=== PATIENT | male | born 1995 | race African-American/Black ===

== ENCOUNTER 2021-01-13 22:49 | Emergency (ER) | payer BC ==
[2021-01-13] MEDS ORDERED: ACETAMINOPHEN 500 MG TAB ONE (23:58)
[2021-01-14 00:14] LABS: Urine Blood 1+ (Negative); Urine Glucose Negative (Negative); Urine Protein Trace (Negative); Urine Specific Gravity >=1.030 (1.005-1.030); Urine pH 5.5 (5.0-7.0)
--- NOTE | 2021-01-14 01:10 | EDPHYS ---
Physician Documentation [facility] Name: Norris Su Age: 25 yrs Sex: Male : 1995 Arrival Date: 01/13/2021 Time: 22:53 Bed DIS2 Private MD: ED Physician Zoraida Truong HPI: 01/14 00:12 This 25 yrs old Black Male presents to ER via Ambulatory with complaints of Fever, BODY sp3 ACHES. 00:12 5-year-old male with no past medical history presents with chief complaint fever and sp3 body aches x3 days. Patient has not received the COVID-19 vaccine. Patient denies any other symptoms such as headache, neck pain, chest pain, shortness of breath, abdominal pain, nausea, vomiting, diarrhea, syncope, known COVID-19 contacts, travel history, any other ROS this time.. Historical: - Allergies: 01/13 23:26 No Known Allergies; kg - Home Meds: 23:26 None [Active]; kg - PMHx: 23:26 None; kg - PSHx: 23:26 None; kg - Immunization history:: Adult Immunizations not up to date, Client reports having NOT received the Covid vaccine. - Social history:: Smoking status: Patient reports the use of cigarette tobacco products, smokes one-half pack cigarettes per day, Patient uses alcohol, only on a social basis. ROS: 01/14 00:13 Eyes: Negative for injury, pain, redness, and discharge, ENT: Negative for injury, sp3 pain, and discharge, Neck: Negative for injury, pain, and swelling, Cardiovascular: Negative for chest pain, palpitations, and edema, Respiratory: Negative for shortness of breath, cough, wheezing, and pleuritic chest pain, Abdomen/GI: Negative for abdominal pain, nausea, vomiting, diarrhea, and constipation, : Negative for injury, bleeding, discharge, and swelling, Skin: Negative for injury, rash, and discoloration, Neuro: Negative for headache, weakness, numbness, tingling, and seizure. Constitutional: Positive for fatigue, fever, malaise. All other systems are negative. Exam: 00:13 Constitutional: This is a well developed, well nourished patient who is awake, alert, sp3 and in no acute distress. Head/Face: Normocephalic, atraumatic. Eyes: Pupils equal round and reactive to light, extra-ocular motions intact. Lids and lashes normal. Conjunctiva and sclera are non-icteric and not injected. Cornea within normal limits. Periorbital areas with no swelling, redness, or edema. ENT: Nares patent. No nasal discharge, no septal abnormalities noted. External auditory canals are clear. Oropharynx with no redness, swelling, or masses, exudates, or evidence of obstruction, uvula midline. Mucous membranes moist. Neck: Trachea midline, no thyromegaly or masses palpated, and no cervical lymphadenopathy. Supple, full range of motion without nuchal rigidity, or vertebral point tenderness. No Meningismus. Chest/axilla: Normal chest wall appearance and motion. Nontender with no deformity. No lesions are appreciated. Cardiovascular: Regular rate and rhythm with a normal S1 and S2. No gallops, murmurs, or rubs. Normal PMI, no JVD. No pulse deficits. Respiratory: Lungs have equal breath sounds bilaterally, clear to auscultation and percussion. No rales, rhonchi or wheezes noted. No increased work of breathing, no retractions or nasal flaring. Abdomen/GI: Soft, non-tender, with normal bowel sounds. No distension or tympany. No guarding or rebound. No evidence of tenderness throughout. Skin: Warm, dry with normal turgor. Normal color with no rashes, no lesions, and no evidence of cellulitis. MS/ Extremity: Pulses equal, no cyanosis. Neurovascular intact. Full, normal range of motion. Neuro: Awake and alert, GCS 15, oriented to person, place, time, and situation. Cranial nerves II-XII grossly intact. Motor strength 5/5 in all extremities. Sensory grossly intact. Cerebellar exam normal. Normal gait. Psych: Awake, alert, with orientation to person, place and time. Behavior, mood, and affect are within normal limits. Vital Signs: 01/13 23:23 BP 131 / 89; Pulse 84; Resp 20; Temp 102.5(O); Pulse Ox 100% on R/A; Weight 99.79 kg; kg Height 5 ft. 11 in. (180.34 cm); Pain 5/10; 01/14 00:53 Temp 99.7(O); em 01/13 23:23 Body Mass Index 30.68 (99.79 kg, 180.34 cm) kg MDM: 01/13 23:58 Patient medically screened. sp3 01/14 00:14 Data reviewed: vital signs, nurses notes, lab test result(s). ED course: 35-year-old sp3 male with likely viral syndrome. We will assess influenza versus strep versus COVID-19. If all tests are negative will discharge patient home with general viral syndrome diagnosis and precautions. At this time I am not suspicious for pneumonia, sepsis, shock, pulmonary embolism, acute coronary syndrome, any other critical illness at this time. Patient received Tylenol for his fever. Currently he has no symptoms and is in no acute distress.. 01:08 ED course: Patient's COVID-19 test was positive. Patient is is not O2 dependent and sp3 will discharge home on OTC multivitamin at this time. Patient educated on isolation and potential spread.. 01/13 23:22 Order name: Flu; Complete Time: 00:27 kg 01/13 23:23 Order name: Strep; Complete Time: 00:27 kg 01/13 23:45 Order name: Urine Microscopic Only cp 01/13 23:45 Order name: Urine Dipstick-Ancillary (obtain specimen); Complete Time: 00:14 cp 01/14 00:14 Order name: Urine Dipstick-Ancillary; Complete Time: 00:27 EDMS 01/14 00:21 Order name: Throat Culture EDMS 01/14 01:15 Order name: SARS-COV-2 RT PCR EDMS Administered Medications: 01/13 23:35 Drug: Tylenol 1000 mg Route: PO; kg 01/14 00:28 Follow up: Response: No adverse reaction; Marked relief of symptoms; Pain is decreased em Disposition Summary: 01/14/21 01:09 Discharge Ordered Location: Home sp3 Condition: Stable sp3 Diagnosis - SARS-associated coronavirus as the cause of diseases classified elsewhere sp3 Followup: sp3 - With: Private Physician - When: - Reason: Recheck today's complaints Discharge Instructions: - Discharge Summary Sheet sp3 - COVID-19 sp3 - Things to Know about the COVID-19 Pandemic - [facility] sp3 - COVID-19: Quarantine vs. Isolation - [facility] sp3 Forms: - Medication Reconciliation Form sp3 - Thank You Letter sp3 - Antibiotic Education sp3 - Prescription Opioid Use sp3 Signatures: Dispatcher [employer] EDMS Michael Arnett PA PA cp Kasandra Alexander RN RN Zoraida Reeves sp3 Jose Guadarrama RN em Corrections: (The following items were deleted from the chart) 00:08 01/13 23:45 Urine Test ordered. cp cp
--- NOTE | 2021-01-14 01:10 | ER ---
Nurse's Notes [facility] Name: Norris Su Age: 25 yrs Sex: Male : 1995 Arrival Date: 01/13/2021 Time: 22:53 Bed DIS2 Private MD: Diagnosis: SARS-associated coronavirus as the cause of diseases classified elsewhere Presentation: 01/13 23:23 Chief complaint: Patient states: Body aches, fever, sore throat, nausea. Coronavirus kg screen: Client denies travel out of the [place] in the last 14 days. At this time, unable to obtain information related to travel outside the [place] Client presents with at least one sign or symptom that may indicate coronavirus-19. Standard/surgical mask placed on the client. Provider contacted for isolation considerations. Ebola Screen: Patient negative for fever greater than or equal to 101.5 degrees Fahrenheit, and additional compatible Ebola Virus Disease symptoms Patient denies exposure to infectious person. Patient denies travel to an Ebola-affected area in the 21 days before illness onset. Initial Sepsis Screen: Does the patient meet any 2 criteria? No. Patient's initial sepsis screen is negative. Does the patient have a suspected source of infection? No. Patient's initial sepsis screen is negative. Risk Assessment: Do you want to hurt yourself or someone else? Patient reports no desire to harm self or others. Onset of symptoms was January 13, 2021. 23:23 Method Of Arrival: Ambulatory kg 23:23 Acuity: MANJEET 4 kg Triage Assessment: 23:26 General: Appears uncomfortable, Behavior is calm, cooperative, appropriate for age, kg quiet. Pain: Complains of pain in throat, head Pain radiates to Generalized. Historical: - Allergies: 23:26 No Known Allergies; kg - Home Meds: 23:26 None [Active]; kg - PMHx: 23:26 None; kg - PSHx: 23:26 None; kg - Immunization history:: Adult Immunizations not up to date, Client reports having NOT received the Covid vaccine. - Social history:: Smoking status: Patient reports the use of cigarette tobacco products, smokes one-half pack cigarettes per day, Patient uses alcohol, only on a social basis. Screenin:28 Abuse screen: Denies threats or abuse. Denies injuries from another. Nutritional kg screening: No deficits noted. Tuberculosis screening: No symptoms or risk factors identified. Fall Risk None identified. Assessment: 01/14 00:04 General: Appears in no apparent distress. comfortable, Behavior is calm, cooperative, em appropriate for age, Reports fever for 0-12 hours, feeling ill for 0-12 hours. Pain: Complains of pain in body aches. Neuro: Level of Consciousness is awake, alert, obeys commands, Oriented to person, place, time, situation. Cardiovascular: Capillary refill < 3 seconds Patient's skin is warm and dry. Respiratory: Airway is patent Respiratory effort is even, unlabored, Respiratory pattern is regular, symmetrical. Derm: Skin is intact, is healthy with good turgor, Skin is pink, warm \T\ dry. Vital Signs: 01/13 23:23 BP 131 / 89; Pulse 84; Resp 20; Temp 102.5(O); Pulse Ox 100% on R/A; Weight 99.79 kg; kg Height 5 ft. 11 in. (180.34 cm); Pain 5/10; 01/14 00:53 Temp 99.7(O); em 01/13 23:23 Body Mass Index 30.68 (99.79 kg, 180.34 cm) kg ED Course: 01/13 22:53 Patient arrived in ED. wm 23:26 Triage completed. kg 23:26 Arm band placed on. kg 23:28 Patient has correct armband on for positive identification. kg 23:57 Zoraida Truong is Attending Physician. sp3 01/14 00:05 Jose Guadarrama, RN is Primary Nurse. em 01:08 No provider procedures requiring assistance completed. Patient did not have IV access em during this emergency room visit. Administered Medications: 01/13 23:35 Drug: Tylenol 1000 mg Route: PO; kg 01/14 00:28 Follow up: Response: No adverse reaction; Marked relief of symptoms; Pain is decreased em Outcome: 01:09 Discharge ordered by . sp3 01:17 Discharged to home ambulatory. em 01:17 Condition: good 01:17 Discharge instructions given to patient, Instructed on discharge instructions, follow up and referral plans. Demonstrated understanding of instructions, follow-up care. 01:18 Patient left the ED. em Signatures: Jose Guadarrama, RN RN em Kasandra Alexander RN RN kg Lora Leal, Zoraida sp3
[2021-01-14 03:14] VITALS: BP 131/89; O2SAT 100
[2021-01-14 03:20] VITALS: TEMP 99.7
== END 2021-01-14 01:18 | disposition home or self-care (01) ==
LOC: ER 22:49
DX: U07.1 COVID-19 (principal); F17.210 Nicotine dependence, cigarettes, uncomplicated
CPT/HCPCS: 87070; 87081; 81003; 87804 ×2; 99283; U0003